=== PATIENT | male | born 1950 | race Caucasian/White ===

== ENCOUNTER → 2017-08-21 | Outpatient (CLI) | payer OTHER ==
--- NOTE | 2017-08-21 15:58 | DIAGNOSTIC IMAGING REPORT ---
CHEST 2 VIEWS ROUTINE HISTORY: COUGH COMPARISON: None. FINDINGS: The lungs are clear. Cardiac silhouette is normal in size. No pleural effusions. No pneumothorax. Old, healed left-sided rib fractures. IMPRESSION: No acute process. Electronically signed by: Dean Leach M.D. 08/21/2017 3:57 PM Dictated Date/Time: 08/21/2017 3:53 PM
== END | disposition home or self-care (01) ==
LOC: C.RAD 15:14
PROVIDERS: ATTEND Family Medicine
DX: R05 Cough (principal); Z88.8 Allergy status to other drugs, medicaments and biological substances